=== PATIENT | male | born 1930 | race Caucasian/White ===

== ENCOUNTER 2016-06-06 06:06 | Emergency (ER) | payer MEDICARE, OTHER ==
[~2016-06-06] VITALS: Ht 177.8 cm; Wt 90.9 kg
[~2016-06-06 06:06] MED LIST: ALLP100T PO; ALPR0.25 PO; AMLO10TA4; APIX5TAB PO; ASCO100T6 PO; ASCO500C14; ASCO500T7 PO; ASPI-84; ASPI-983 PO; AVOD0.5CAP; CALC625T PO; CEFU500T PO; CLOP75TA28 PO; CYCL10TA9; DIGO125T PO; DILT120C PO; DILT360C26 PO; DILT360T2 PO; DOXA2TAB2 PO; DOXA8TAB33; ENOX80DI12 SQ; FENO145T2 PO; FENO145T20 PO; FINA5TAB6 PO; FOLI1TAB7; GABA-486 PO; GABA100C PO; GLUC100016 PO; GLUC1CAP14 PO; GLUCOSAMINE; HCT25T PO; HYDR1TAB PO; ISOS30TA3 PO; LACT1CAP40 PO; LECI400C PO; LVT.025T PO; Lecithin; MULT-1029 PO; MULT1CAP27 PO; NEBI5TAB8; NEBI5TAB8 PO; NF-ESOM40C PO; NFNEB10T PO; OMEP20CA12 PO; OMEP20TA7 PO; OMG1KC PO; POLY17PO6 PO; POTA99TA7 PO; POTASSIUM GLUCO PO; PSYL0.5211 PO; PSYL0.5244 PO; PSYL1PAC15; PSYL798P2 PO; RIVA20TA PO; TMSL.4C PO; TORS10TA2; TORS10TA5 PO; TORS5TAB10 PO; VALS320T8 PO; WARF-48 PO; WARF5TAB PO; WARF7.5T PO; WRF5T PO; [UNRECOGNIZED DRUG - OTHER]
--- OUTSIDE RECORDS SUMMARY | 2016-06-06 06:14 | XMS REPORT | Continuity of Care Document ---
Author Author [facility] Organization [facility] Address Unknown Phone Unavailable Care Team Providers Care Ticket Dispenser Changer Name Role Phone PCP Unavailable Source Comments Some departments are not documenting in the electronic medical record. If you do not see the information that you expected, contact Release of Information in the Health Information Management department at [phone] for further assistance in locating additional records.[facility] Active Allergies and Adverse Reactions Allergen Noted Date Severity Reactions Comments Sulfa (Sulfonamide 07/02/2011 UNKNOWN Antibiotics) Current Medications Prescription Sig. Disp. Refills Start End Date Status Date doxazosin (CARDURA) 8 mg Take 8 mg by mouth daily. Active tablet warfarin (COUMADIN) 5 mg Take by mouth daily. Active tablet Take 5 mg on Saturday, Saturday, , Saturday, and Saturday. 7.5 mg on Saturday and Saturday hydrochlorothiazide Take 25 mg by mouth Active (HYDRODIURIL) 25 mg daily. tablet amLODIPine (NORVASC) 10 Take 10 mg by mouth Active mg tablet daily. vitamins, multiple Cap Take 1 Cap by mouth Active daily. Fiber Tab Take 1 Tab by mouth daily Active with breakfast. Potassium 99 mg Tab Take 1 Tab by mouth Active daily. torsemide (DEMADEX) 5 mg Take 0.5 mg by mouth Active tablet daily. dutasteride (AVODART) 0.5 Take 0.5 mg by mouth Active mg capsule daily. esomeprazole DR(+) Take 40 mg by mouth every Active (NEXIUM) 40 mg capsule morning. allopurinol (ZYLOPRIM) Take 100 mg by mouth Active 100 mg tablet daily. diltiazem CD (CARDIZEM Take 120 mg by mouth Active CD) 120 mg capsule daily. fenofibrate Take 145 mg by mouth Active nanocrystallized (TRICOR) daily. 145 mg tablet levothyroxine (SYNTHROID) Take 25 mcg by mouth Active 25 mcg tablet daily. Aspirin 81 mg Tab Take 1 Tab by mouth Active daily. nebivolol (BYSTOLIC) 10 Take 10 mg by mouth Active mg tablet daily. CALCIUM PO Take 625 mg by mouth. Active tamsulosin (FLOMAX) 0.4 Take 0.4 mg by mouth Active mg capsule daily. Lecithin 400 mg Cap Take 400 mg by mouth Active daily. warfarin (COUMADIN) 7.5 Take 7.5 mg by mouth Active mg tablet daily. OMEGA-3 FATTY ACIDS Take 2,000 mg by mouth. 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 05/16/11 - Left Heart Catheterization: LV EF=65%, 40-50% proximal left anterior descending artery stenosis, nonobstructive disease. Otherwise no significant obstructive disease in the coronary system. LVH with good systolic function. Elevated LVEDP, probably diastolic dysfunction - probably secondary to underlying diastolic dysfunction. Benign prostatic hypertrophy 07/02/2011 Pulmonary hypertension (HCC) 07/02/2011 Hyperlipidemia 07/02/2011 Overview: 05/02/11 - YQ=384, DU=736, HDL=43, LDL=58 Tricor 145 mg Daily Hypertension 07/02/2011 Social History Tobacco Use Types Packs/Day Years Used Date Former Smoker 2 60 Alcohol Use Drinks/Week oz/Week Comments Yes 7 Glasses of 4.2 wine Last Filed Vital Signs Vital Sign Reading Time Taken Blood Pressure 158/66 07/03/2011 9:40 AM [employer]K BOTTLER Pulse 55 07/03/2011 9:40 AM [employer]K BOTTLER Temperature - - Respiratory Rate - - Height 1.753 m (5' 9") 07/03/2011 9:40 AM [employer]K BOTTLER Weight 106.595 kg (235 lb) 07/03/2011 9:40 AM [employer]K BOTTLER Body Mass Index 34.69 07/03/2011 9:40 AM MILK BOTTLER Oxygen Saturation 95% 07/03/2011 9:40 AM MILK BOTTLER Plan of Care Health Maintenance Due Date Last Done Comments Physical (Comprehensive) 1937 Exam Pertussis Vaccine 1941 Tetanus Vaccine 1947 Shingles Vaccine 1990 Prevnar/Pneumovax (#1) 1995 Influenza Vaccine 02/02/2016 Results from Last 3 Months Not on file
[2016-06-06 06:35] LABS: BASOPHILS # (AUTO) 0.1 10^3/uL (0.0-0.1); BASOPHILS % (AUTO) 1 % (0-10); EOSINOPHILS # (AUTO) 0.4 10^3/uL (0.0-0.3); EOSINOPHILS % (AUTO) 5 % (0-10); LYMPHOCYTES # (AUTO) 0.8 X 10^3 (1.0-4.0); LYMPHOCYTES % (AUTO) 10 % (12-44); MEAN CORPUSCULAR HEMOGLOBIN 30 PG (25-34); MEAN CORPUSCULAR HGB CONC 33 G/DL (32-36); MEAN CORPUSCULAR VOLUME 90 FL (80-99); MEAN PLATELET VOLUME 11.2 FL (7.4-10.4); MONOCYTES # (AUTO) 0.6 X 10^3 (0.0-1.0); MONOCYTES % (AUTO) 8 % (0-12); NEUTROPHILS # (AUTO) 5.8 X 10^3 (1.8-7.8); NEUTROPHILS % (AUTO) 76 % (42-75); PLATELET COUNT 395 10^3/uL (130-400); RED BLOOD COUNT 5.23 10^6/uL (4.35-5.85); RED CELL DISTRIBUTION WIDTH 15.8 % (10.0-14.5); WHITE BLOOD COUNT 7.6 10^3/uL (4.3-11.0)
[2016-06-06] MEDS ORDERED: LIDOCAINE/EPI 1%-1:100,000 (XYLOCAINE) 20ML INJ STA (06:38)
[2016-06-06] MEDS ORDERED: MELA1TAB15 PO (06:41)
[2016-06-06] MEDS ORDERED: ACET-93 PO (06:41)
[2016-06-06 06:45] LABS: INR 1.6 (0.8-1.4); PROTHROMBIN TIME PATIENT 19.2 SEC (12.2-14.7)
--- NOTE | 2016-06-06 06:46 | ED Fall/Injury ---
General Chief Complaint: Head/Cervical Problems Stated Complaint: FALL,LAC ON BACK OF HEAD Nursing Triage Note: PT REPORTS TRIED TO GET UP ON HIS OWN AND WALKER WENT OUT FROM IN FRONT OF HIM AND FELL BACKWARDS HEAD HIT BEDFRAME. PT ASSISTED UP WITH NO C/O PAIN ELSEWHERE EXCEPT SENSATION OF HEADACHE. Source: patient Exam Limitations: no limitations History of Present Illness Time seen by provider: 06:15 Initial Comments Here with complaint of fall this morning. Patient reports getting up and needed to go the bathroom. He did not request assistance and tried to use his walker. He lost his balance and fell backwards and hit his head. Denies loss of consciousness. Has small laceration to the fifth finger medial aspect where the ring on the fourth finger caught the skin. It looks more like a skin tear. Has approximately 4 cm laceration to the left posterior scalp. Occurred: this morning Severity: moderate Injuries/Pain Location: head Context: lost balance Loss of Consciousness: no loss of consciousness Associated Symptoms (Fall): No Abdominal Pain, No Chest Pain, No Confusion, No Nausea/Vomiting, No Neck Pain, No Shortness of Air Allergies and Home Medications Allergies Coded Allergies: Sulfa (Sulfonamide Antibiotics) (Verified Allergy, Unknown, 05/10/16) Home Medications Acetaminophen 500 Mg Tablet 500 MG PO Q8H (Reported) Allopurinol 100 Mg Tab 100 MG PO BID (Reported) Alprazolam 0.25 Mg Tablet 0.25 MG PO HS PRN PRN INSOMNIA (Reported) Ascorbic Acid 500 Mg Tablet 500 MG PO DAILY (Reported) Clopidogrel Bisulfate 75 Mg Tablet 75 MG PO DAILY (Reported) Digoxin 125 Mcg Tablet 125 MCG PO DAILY (Reported) Diltiazem HCl 360 Mg Tab.er.24h 360 MG PO DAILY (Reported) Doxazosin Mesylate 2 Mg Tablet 1 MG PO BID (Reported) TAKES 1/2 OF A (2MG) TABLET Fenofibrate Nanocrystallized 145 Mg Tablet 145 MG PO DAILY (Reported) Finasteride 5 Mg Tablet 5 MG PO DAILY (Reported) Gabapentin 100 Mg Capsule 100 MG PO BID PRN PRN LEG PAIN (Reported) Gluc HCl/Csa/Fatou Hy/Hyalur AC 1 Each Capsule 1 CAP PO DAILY (Reported) Hydrochlorothiazide 25 Mg Tab 25 MG PO DAILY (Reported) Isosorbide Mononitrate 30 Mg Tab.er.24h 30 MG PO DAILY (Reported) L. Rhamnosus GG/Inulin 1 Each Cap.sprink 1 CAP PO BID (Reported) Levothyroxine Sodium 25 Mcg Tablet 25 MCG PO DAILY (Reported) Melatonin/Pyridoxine 1 Each Tablet 1 EACH PO HS (Reported) Nebivolol HCl 5 Mg Tablet 5 MG PO HS (Reported) Omeprazole 20 Mg Capsule.dr 20 MG PO BID (Reported) Polyethylene Glycol 3350 17 Gm Powd.pack 0.5 TSP PO HS PRN PRN CONSTIPATION ( Reported) Psyllium Husk 0.52 Gm Capsule 0.52 GM PO HS (Reported) Tamsulosin Hcl 0.4 Mg Cap 0.4 MG PO 1800 (Reported) Valsartan 320 Mg Tablet 160 MG PO DAILY (Reported) TAKE 1/2 OF 320 MG TAB Warfarin Sodium 5 Mg Tablet 5 MG PO SuMoWeFr (Reported) Warfarin Sodium 5 Mg Tablet 2.5 MG PO TuThSa (Reported) TAKES 1/2 OF A (5 MG) TABLET Constitutional: see HPINo chills, No fever Eyes: No Symptoms Reported Ears, Nose, Mouth, Throat: no symptoms reported Respiratory: no symptoms reported Cardiovascular: no symptoms reported Gastrointestinal: no symptoms reportedNo abdominal pain, No nausea, No vomiting Musculoskeletal: no symptoms reported Skin: see HPI lesions Psychiatric/Neurological: Denies Headache, Denies Weakness Past Legxibr-Iqbvrz-Bdsnqz Hx Patient Social History Alcohol Use: Denies Use Recreational Drug Use: No Smoking Status: Former Smoker Former Smoker/When Quit: Jul 04, 1949 2nd Hand Smoke Exposure: No Recent Foreign Travel: No Contact w/Someone Who Travel: No Recent Infectious Disease Expo: No Recent Hopitalizations: No Physical Abuse Screen: No Sexual Abuse: No Immunizations Up To Date Date of Pneumonia Vaccine: Jul 04, 2013 Date of Influenza Vaccine: Feb 29, 2016 Seasonal Allergies Seasonal Allergies: No Surgeries HX Surgeries: Yes (Knee SX) Surgeries: Angioplasty, Pacemaker Respiratory Hx Respiratory Disorders: Yes Respiratory Disorders: Sleep Apnea Cardiovascular Hx Cardiac Disorders: Yes (S/P pacemaker) Cardiac Disorders: Peripheral Vascular Neurological Hx Neurological Disorders: Yes Neurological Disorders: Seizure Disorder Reproductive System Hx Reproductive Disorders: No Genitourinary Hx Genitourinary Disorders: No Gastrointestinal Hx Gastrointestinal Disorders: Yes Gastrointestinal Disorders: Gastroesophageal Reflux Musculoskeletal Hx Musculoskeletal Disorders: Yes Musculoskeletal Disorders: Arthritis Endocrine Hx Endocrine Disorders: Yes Endocrine Disorders: Hypothyroidsim HEENT HEENT Disorders: Cataract Cancer Hx Cancer: Yes (Melanoma) Cancer: Skin Psychosocial Hx Psychiatric Problems: No Integumentary HX Skin/Integumentary Disorder: No Blood Transfusions Hx Blood Disorders: No Adverse Reaction to a Blood Tr: No Reviewed Nursing Assessment Reviewed/Agree w Nursing PMH: Yes Family Medical History Significant Family History: Hypertension Physical Exam Vital Signs Vital Sign - Last 12Hours 06/06/16 06:15 Temp 97.2 Pulse 85 Resp 20 B/P 168/104 Pulse Ox 93 O2 Delivery Room Air Capillary Refill : Less Than 3 Seconds General Appearance: WD/WN no apparent distress HEENT: PERRL/EOMI pharynx normal Neck: full range of motion supple Cardiovascular: regular rate, rhythm no murmur Respiratory: lungs clear normal breath sounds Gastrointestinal: non tender soft Back: normal inspection no CVA tenderness no vertebral tenderness Extremities: non-tender normal inspection Neurologic/Psychiatric: alert oriented x 3 Skin: normal color warm/dry other (1 cm superficial skin tear to the left fifth pinky medial aspect. 4 cm laceration to the posterior scalp on the left side.) [place] Coma Score Best Eye Response: (4) Open Spontaneously Best Verbal Response: (5) Oriented Best Motor Response: (6) Obeys Commands Laceration Repair : Wound Location: Scalp Other Wound Location Left posterior Wound Length (cm): 4 Wound's Depth, Shape: superficial Wound Explored: contaminated Irrigated w/ Saline (ccs): 20 Betadine Prep?: Yes (Rodger) Anesthesia: Lidocaine w/ Epi Volume Anesthetic (ccs): 5 Wound Debrided: minimal Staple Repair: Stapler Skin Precise Number of Sutures: 6 Layer Closure?: 1 Number Deep Layer Sutures: 0 Progress Tolerated procedure well with no complications. Good skin closure Progress/Results/Core Measures Results/Orders Lab Results Laboratory Tests Test 06/06/16 06:27 Range/Units Activated Partial Thromboplast Time 36 H 24-35 SEC Alanine Aminotransferase (ALT/SGPT) 14 0-55 U/L Albumin 4.0 3.2-4.5 G/DL Alkaline Phosphatase 53 40-136 U/L Anion Gap 11 5-14 MMOL/L Aspartate Amino Transf (AST/SGOT) 13 5-34 U/L BUN/Creatinine Ratio 22 Basophils # (Auto) 0.1 0.0-0.1 10^3/uL Basophils (%) (Auto) 1 0-10 % Blood Urea Nitrogen 21 H 7-18 MG/DL Calcium Level 9.1 8.5-10.1 MG/DL Carbon Dioxide Level 24 21-32 MMOL/L Chloride Level 109 H 98-107 MMOL/L Creatinine 0.96 0.60-1.30 MG/DL Eosinophils # (Auto) 0.4 H 0.0-0.3 10^3/uL Eosinophils (%) (Auto) 5 0-10 % Estimat Glomerular Filtration Rate > 60 Glucose Level 120 H 70-105 MG/DL Hematocrit 47 40-54 % Hemoglobin 15.5 13.3-17.7 G/DL INR Comment 1.6 H 0.8-1.4 Lymphocytes # (Auto) 0.8 L 1.0-4.0 X 10^3 Lymphocytes (%) (Auto) 10 L 12-44 % Mean Corpuscular Hemoglobin 30 25-34 PG Mean Corpuscular Hemoglobin Concent 33 32-36 G/DL Mean Corpuscular Volume 90 80-99 FL Mean Platelet Volume 11.2 H 7.4-10.4 FL Monocytes # (Auto) 0.6 0.0-1.0 X 10^3 Monocytes (%) (Auto) 8 0-12 % Neutrophils # (Auto) 5.8 1.8-7.8 X 10^3 Neutrophils (%) (Auto) 76 H 42-75 % Platelet Count 395 130-400 10^3/uL Potassium Level 3.7 3.6-5.0 MMOL/L Prothrombin Time 19.2 H 12.2-14.7 SEC Red Blood Count 5.23 4.35-5.85 10^6/uL Red Cell Distribution Width 15.8 H 10.0-14.5 % Sodium Level 144 135-145 MMOL/L Total Bilirubin 0.7 0.1-1.0 MG/DL Total Protein 6.2 L 6.4-8.2 G/DL White Blood Count 7.6 4.3-11.0 10^3/uL My Orders Orders-ANDREINA PEREYRA MD Cbc With Automated Diff (06/06/16 06:22) Protime With Inr (06/06/16 06:22) Partial Thromboplastin Time (06/06/16 06:22) Comprehensive Metabolic Panel (06/06/16 06:30) Ct Head/Cervical Spine Wo (06/06/16 06:30) Lidocaine/Epi 1% 1:100,000 (Xylocaine /E (06/06/16 06:38) Saline Lock/Iv-Start (06/06/16 07:35) Ns Iv 500 Ml (Sodium Chloride 0.9%) (06/06/16 07:35) Ct Head W (06/06/16 07:35) Iohexol Injection (Omnipaque 350 Mg/Ml 1 (06/06/16 07:45) Ns (Ivpb) (Sodium Chloride 0.9% Ivpb Bag (06/06/16 07:45) Decadron 10 Mg Im (06/06/16 09:42) Medications Given in ED Current Medications Medications Dose Ordered Sig/Emmie Route Start Time Stop Time Status Last Admin Dose Admin Iohexol 80 ml ONCE ONCE IV 06/06/16 07:45 06/06/16 07:55 DC 06/06/16 08:06 80 ML Sodium Chloride 100 ml ONCE ONCE IV 06/06/16 07:45 06/06/16 07:55 DC 06/06/16 08:06 80 ML Sodium Chloride 500 ml @ 0 mls/hr Q0M ONCE IV 06/06/16 07:35 06/06/16 07:37 DC 06/06/16 07:57 500 MLS/HR Vital Signs/I&O Vital Sign - Last 12Hours 06/06/16 06:15 Temp 97.2 Pulse 85 Resp 20 B/P 168/104 Pulse Ox 93 O2 Delivery Room Air Blood Pressure Mean: 125 Progress Note : Progress Note Seen and evaluated. CT head ordered. Labs ordered due to history of Coumadin use and fall. Lac repair to posterior scalp with cindi by me. Wounds on left hand cleaned and covered with Band-Aid by nursing. CT results do not indicate any acute intracranial hemorrhage but there is a few rounded hypoattenuating lesions within the brain that are concerning for malignancy. Patient has recent placement of pacemaker and is unable to do MRI. CT of the brain with contrast ordered after discussion with Dr. Vasquez. The patient's oldest son who is an anesthesiologist is here and all findings and concerns were discussed with him as well. IV and normal saline 500 mm bolus ordered. Monitor patient. 0909: I have discussed the CT findings with the patient and family. Patient elects to pursue only palliative care related to the probable metastatic brain cancer. This will be discussed with Dr. Vasquez. He would like to pursue hospice that his had but he does not remember the name. This will also be discussed with Dr. Vasquez. Patient would like to remain at the skilled nursing facility he currently is at to decrease stress on his family and his family is okay with that decision as well. Currently is without pain. Discharged back to nursing facility with return precautions. Patient verbalize understanding instructions and agreement with plan. 0940: Discussed case with Dr. Vasquez. We will initiate Decadron treatment. 10 mg IM given now. Dosing for 4 mg by mouth twice a day afterwards. She will adjust dose as needed. She will see patient in the ER. Diagnostic Imaging Diagonstic Imaging: CT Plain Films/CT/US/NM/MRI: c-spine, head Comments VIA [facility]. [place], [place] NAME: ASHLYN CASTILLO [facility] REC#: [id number] PT STATUS: REG ER : 1930 PHYSICIAN: ANDREINA PEREYRA MD ADMIT DATE: 06/06/16/ER Draft Date of Exam:06/06/16 CT HEAD/CERVICAL SPINE WO PROCEDURE: CT head and CT cervical spine without contrast. TECHNIQUE: Multiple contiguous axial images were obtained through the brain and cervical spine without the use of intravenous contrast. Sagittal and coronal reformations through the cervical spine were then performed. INDICATION: Fall. FINDINGS: CT HEAD: There is no intracranial hemorrhage. There is a right frontal periventricular white matter lesion measuring 2.2 cm in size with surrounding vasogenic edema. A medial superior right frontoparietal 1.5 cm similar lesion is seen. A smaller focal area more superiorly in the right frontal region is also noted and appears separate from the vasogenic edema around the dominant lesion described above and probably represents a third lesion. This is suspicious for metastatic disease although the findings are not specific. There is no hydrocephalus. No extra-axial fluid collection is seen. The calvarium appears grossly unremarkable. There is a small fluid level in the right frontal sinus. There is no obvious sinus wall fracture based on the head CT demonstrated. CT CERVICAL SPINE: There is reversal of the lordotic curvature with maintained alignment at the posterior spinal line. There are maintained vertebral body heights. Severe disc height loss at the C3-4 and C4-5 levels and moderate disc height loss at the C5-6 and C6-7 levels are seen with degenerative sclerotic changes noted. There is no facet dislocation. There is preserved alignment at the lateral masses of C1 and C2 and atlantooccipital joints. There is no widening of the predental space. No fracture is identified. IMPRESSION: CT HEAD: 1. There is no intracranial hemorrhage. There are, however, hypodense masses seen in the brain. A contrast enhanced study, preferably MRI, is recommended for further evaluation. 2. A small fluid level in the right maxillary sinus could be related to retained secretions. If there is tenderness in the face, one might consider evaluation with a dedicated maxillofacial CT scan. 3. This reading agrees with the [facility] report. CT CERVICAL SPINE: Advanced degenerative changes. No fracture is seen. Dictated on workstation # [id number] Dict: 06/06/16 0822 Trans: 06/06/16 0847 [id number] Interpreted by: ALANA SANON MD Electronically signed by: Reviewed: Reviewed by Me, Discussed w/Radiologist Diagonstic Imaging: CT Plain Films/CT/US/NM/MRI: head Comments VIA [facility]. [place], [place] NAME: ANNAASHLYN [facility] REC#: [id number] PT STATUS: REG ER : 1930 PHYSICIAN: ANDREINA PEREYRA MD ADMIT DATE: 06/06/16/ER Draft Date of Exam:06/06/16 CT HEAD W PROCEDURE: CT head with contrast. TECHNIQUE: Multiple contiguous axial images were obtained through the brain after the administration of intravenous contrast. INDICATION: Multiple lesions in the brain. History of melanoma. CONTRAST: 80 mL of Omnipaque 350 was administered intravenously. FINDINGS: There are multiple peripherally enhancing masses seen in the right frontal region mostly. The largest is in the periventricular white matter along the right frontal lobe with mild extension into the genu of the corpus callosum measuring 2.7 x 2.5 x 2.1 cm with peripheral nodular enhancement and mild to moderate surrounding vasogenic edema. Another lesion more superiorly and laterally is a 1.3 cm enhancing lesion and a third lesion is more superiorly and slightly lateral as well measuring 1.4 cm with central necrosis. At the medial aspect of the right frontoparietal junction, there is a lesion with a maximum measurement of 1.9 cm and central enhancement. Slightly more inferior to this lesion, there is a 0.8 cm similar nodule identified. No definite lesion is seen in the left hemisphere. No definite lesion is seen in the brainstem or the cerebellum. There is no shift of the midline structures of significance. The lateral ventricles demonstrate mild effacement in the right frontal lobe from mass effect. The osseous structures appear grossly unremarkable. There is a small amount of secretions in the right maxillary sinus. IMPRESSION: There are multiple masses, mostly in the right frontal lobe, with associated mild to moderate mass effect and adjacent vasogenic edema around the dominant lesion anteriorly in the right frontal lobe, likely related to metastatic disease. The possibility of abscesses or septic emboli is less likely and is not supported by the clinical presentation as discussed with Dr. Pereyra personally by phone at the time of dictation. 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 Decision time for Depature: 09:11 Referrals: SONIDO VASQUEZ MD (PCP/Family) Primary Care Physician Patient Instructions: Laceration Repair With Cindi (DC) Add. Discharge Instructions: All discharge instructions reviewed with patient and/or family. Voiced understanding. [place] out in 7 days. Follow-up with Dr. VASQUEZ this week for recheck and further evaluation and for further discussion related to brain cancer findings. Return for worse pain, fever, vomiting, weakness, breathing problems or other concerns as needed. Scripts Dexamethasone 4 Mg Tablet4 Mg PO BID #60 TAB Ref 0 Prov:ANDREINA PEREYRA MD 06/06/16 Copy Copies To 1: SONIDO VASQUEZ MD, TIMOTHY D MD Jun 06, 2016 06:46
[2016-06-06 06:53] LABS: ALANINE AMINOTRANSFERASE 14 U/L (0-55); ANION GAP 11 MMOL/L (5-14); ASPARTATE AMINO TRANSFERASE 13 U/L (5-34); BILIRUBIN,TOTAL 0.7 MG/DL (0.1-1.0); BLOOD UREA NITROGEN 21 MG/DL (7-18); BUN/CREATININE RATIO 22; CALCIUM 9.1 MG/DL (8.5-10.1); CARBON DIOXIDE 24 MMOL/L (21-32); CHLORIDE 109 MMOL/L (98-107); CREATININE SERUM 0.96 MG/DL (0.60-1.30); GFR ESTIMATED > 60; GLUCOSE 120 MG/DL (70-105); POTASSIUM 3.7 MMOL/L (3.6-5.0); SODIUM 144 MMOL/L (135-145); TOTAL PROTEIN 6.2 G/DL (6.4-8.2)
[2016-06-06] MEDS ORDERED: NS IV 500 ML 500 ML IV ONE (07:35)
[2016-06-06] MEDS ORDERED: IOHEXOL 350 MG/ML 100 ML (OMNIPAQUE 350) VIAL IV ONE (07:45)
[2016-06-06] MEDS ORDERED: NS 100 ML (IVPB) BAG IV ONE (07:45)
--- NOTE | 2016-06-06 08:47 | Diagnostic Imaging Report ---
PROCEDURE: CT head and CT cervical spine without contrast. TECHNIQUE: Multiple contiguous axial images were obtained through the brain and cervical spine without the use of intravenous contrast. Sagittal and coronal reformations through the cervical spine were then performed. INDICATION: Fall. FINDINGS: CT HEAD: There is no intracranial hemorrhage. There is a right frontal periventricular white matter lesion measuring 2.2 cm in size with surrounding vasogenic edema. A medial superior right frontoparietal 1.5 cm similar lesion is seen. A smaller focal area more superiorly in the right frontal region is also noted and appears separate from the vasogenic edema around the dominant lesion described above and probably represents a third lesion. This is suspicious for metastatic disease although the findings are not specific. There is no hydrocephalus. No extra-axial fluid collection is seen. The calvarium appears grossly unremarkable. There is a small fluid level in the right frontal sinus. There is no obvious sinus wall fracture based on the head CT demonstrated. CT CERVICAL SPINE: There is reversal of the lordotic curvature with maintained alignment at the posterior spinal line. There are maintained vertebral body heights. Severe disc height loss at the C3-4 and C4-5 levels and moderate disc height loss at the C5-6 and C6-7 levels are seen with degenerative sclerotic changes noted. There is no facet dislocation. There is preserved alignment at the lateral masses of C1 and C2 and atlantooccipital joints. There is no widening of the predental space. No fracture is identified. IMPRESSION: CT HEAD: 1. There is no intracranial hemorrhage. There are, however, hypodense masses seen in the brain. A contrast enhanced study, preferably MRI, is recommended for further evaluation. 2. A small fluid level in the right maxillary sinus could be related to retained secretions. If there is tenderness in the face, one might consider evaluation with a dedicated maxillofacial CT scan. CT CERVICAL SPINE: Advanced degenerative changes. No fracture is seen. This reading agrees with the [facility] report. Dictated by: Dictated on workstation # [id number]
--- NOTE | 2016-06-06 08:51 | Diagnostic Imaging Report ---
PROCEDURE: CT head with contrast. TECHNIQUE: Multiple contiguous axial images were obtained through the brain after the administration of intravenous contrast. INDICATION: Multiple lesions in the brain. History of melanoma. CONTRAST: 80 mL of Omnipaque 350 was administered intravenously. FINDINGS: There are multiple peripherally enhancing masses seen in the right frontal region mostly. The largest is in the periventricular white matter along the right frontal lobe with mild extension into the genu of the corpus callosum measuring 2.7 x 2.5 x 2.1 cm with peripheral nodular enhancement and mild to moderate surrounding vasogenic edema. Another lesion more superiorly and laterally is a 1.3 cm enhancing lesion and a third lesion is more superiorly and slightly lateral as well measuring 1.4 cm with central necrosis. At the medial aspect of the right frontoparietal junction, there is a lesion with a maximum measurement of 1.9 cm and central enhancement. Slightly more inferior to this lesion, there is a 0.8 cm similar nodule identified. No definite lesion is seen in the left hemisphere. No definite lesion is seen in the brainstem or the cerebellum. There is no shift of the midline structures of significance. The lateral ventricles demonstrate mild effacement in the right frontal lobe from mass effect. The osseous structures appear grossly unremarkable. There is a small amount of secretions in the right maxillary sinus. IMPRESSION: There are multiple masses, mostly in the right frontal lobe, with associated mild to moderate mass effect and adjacent vasogenic edema likely related to metastatic disease. The possibility of abscesses or septic emboli is less likely and is not supported by the clinical presentation as discussed with Dr. Ventura personally by phone at the time of dictation. Dictated by: Dictated on workstation # [id number]
[2016-06-06] MEDS ORDERED: DEXAMETHASONE PF 10 MG/ML (DECADRON) VIAL IM STA (09:42)
[2016-06-06] MEDS ORDERED: DEXA4TAB PO (09:44)
[2016-06-06 10:04] VITALS: BP 147/91
== END 2016-06-06 10:04 ==
LOC: EDUNIT# 06:06 → ER 06:08
DX: S01.01XA Laceration without foreign body of scalp, initial encounter (principal); S61.217A Laceration without foreign body of left little finger without damage to nail, initial encounter; C79.31 Secondary malignant neoplasm of brain; Z85.820 Personal history of malignant melanoma of skin; M47.812 Spondylosis without myelopathy or radiculopathy, cervical region; Z79.02 Long term (current) use of antithrombotics/antiplatelets; Z79.899 Other long term (current) drug therapy; Z95.0 Presence of cardiac pacemaker; W01.0XXA Fall on same level from slipping, tripping and stumbling without subsequent striking against object, initial encounter; Y92.122 Bedroom in nursing home as the place of occurrence of the external cause; Y99.8 Other external cause status
CPT/HCPCS: 36415; 70450; 70460; 72125; 80053; 85025; 85610; 85730; 96360; 96372